=== PATIENT | female | born 1965 | race Caucasian/White ===

== ENCOUNTER → 2023-09-29 11:27 | Outpatient (REF) | payer OTHER, SELFPAY | LOC: WDC 11:27 | PROVIDERS: ATTENDING PHYSICIAN Physician Assistant | DX: Z12.31 Encounter for screening mammogram for malignant neoplasm of breast (principal) | CPT/HCPCS: 77063; 77067 ==

== ENCOUNTER → 2024-01-24 13:04 | Outpatient (REF) | payer OTHER, SELFPAY | LOC: RAD 13:04 | PROVIDERS: ATTENDING PHYSICIAN Urology; FAMILY PHYSICIAN Family Medicine | DX: D49.512 Neoplasm of unspecified behavior of left kidney (principal); N28.89 Other specified disorders of kidney and ureter | CPT/HCPCS: 74178; Q9967 ==

== ENCOUNTER 2024-05-02 19:30 | Emergency (ER) | payer OTHER, SELFPAY ==
[2024-05-02] VITALS (12 sets, daily range): BP systolic 110–149; BP diastolic 74–102; BMI 30.3
[2024-05-02 20:09] LABS: INR 1.04; PT 13.6 Sec (11.4-14.6)
[2024-05-02 20:10] LABS: % Basophils 0.3 % (0-2); % Eosinophils 1.8 % (0-6); % Immature Granulocytes 0.2 % (0-0.5); % Lymphocytes 33.1 % (20.5-51.1); % Neutrophils 57.6 % (42.2-75.2); Absolute Eosinophils 0.2 10^3/uL (0-0.7); Absolute Monocytes 0.6 10^3/uL (0.1-0.6); Absolute Neutrophils 5.2 10^3/uL (1.4-6.5); Hematocrit 39.2 % (37.0-47.0); Hemoglobin 12.7 g/dL (12.0-16.0); Mean Corp Hgb Conc. 32.4 g/dL (33.0-37.0); Mean Corpuscular Hgb 29.9 pg (27.0-31.0); Mean Corpuscular Volume 92.2 fL (81.0-99.0); Mean Platelet Volume 9.7 fL (7.4-10.4); Nucleated Red Blood Cells % 0 %; Platelet Count 249 10^3/uL (130-400); Red Blood Cell Count 4.25 10^6/uL (4.20-5.40); White Blood Cell Count 9.1 10^3/uL (4.8-10.8)
[2024-05-02 20:16] LABS: ALT (SGPT) 23 U/L (0-35); AST (SGOT) 30 U/L (14-36); Albumin 4.6 g/dl (3.5-5.0); Alkaline Phosphatase 101 U/L (38-126); Blood Urea Nitrogen 26 mg/dl (7-17); Calcium 10.2 mg/dl (8.4-10.2); Carbon Dioxide 28 mmol/L (22-30); Chloride 103 mmol/L (98-107); Glucose 97 mg/dl (70-99); Potassium 4.6 mmol/L (3.5-5.1); Sodium 143 mmol/L (135-145); Total Bilirubin 0.4 mg/dl (0.2-1.3); eGFR 53.13
[2024-05-02 20:29] LABS: Troponin I < 0.012 ng/ml
--- NOTE | 2024-05-02 21:39 | ED.GENMED ---
History of Present Illness
<CROW Tineo - Last Filed: 05/02/24 23:13>
General
Chief Complaint: Heart Rate Problem
Source: patient
Exam Limitations: none
Time Seen by Provider: 05/02/24 20:56
History of Present Illness
History of Present Illness:
This is a 58 year old female that comes in with c/o atrial fib. States that she was just sitting watching TV when she felt her heart start with atrial fib. States that she was just at the [employer] yesterday and taken of amiodarone. States that
she did take Diltiazem 120mg at home as she has this prn. States that this started at 5:45pm. Denies any fever, chills, chest pain, SOB, abd pain, nausea, vomiting, diarrhea, headache, dizziness, urinary burning.
Past History
<CROW Tineo - Last Filed: 05/02/24 23:13>
Past History
ED Past Medical History: Arrthythmia (Atrial fibrillation), CHF and Other (DVT, Mass on Kidney, cardioversion X 7); Negative HTN or Hypercholesterolemia
ED Past Surgical History: Other (Surgical left arm embolectomy, Partial thyroidectomy)
Social History
Tobacco: Former smoker (quit 2019)
Alcohol: None
Drug: None
Personal:
Living: with family
Employment: Employed
Family History
Family History: Early CAD
Review of Systems
<CROW Tineo - Last Filed: 05/02/24 23:13>
Review of Systems
All Other Systems: ROS reviewed and negative except as documented in HPI and ROS
Constitutional: Reports no symptoms; Denies fever or chills
EENT: Reports no symptoms
Respiratory: Reports no symptoms; Denies cough or trouble breathing
Cardiac: Reports other (Irregular heart rate); Denies chest pain
ABD/GI: Reports no symptoms; Denies abdominal pain, nausea, vomiting or diarrhea
: Reports no symptoms; Denies dysuria, frequency or urgency
Musculoskeletal: Reports no symptoms
Skin: Reports no symptoms
Neurological: Reports no symptoms; Denies dizzy or headache
Psychiatric: Reports no symptoms
Phy Exam
<CROW Tineo - Last Filed: 05/02/24 23:13>
General Physical Exam
General Presentation: well appearing and no apparent distress
General age: appears stated age
General Skin: warm and dry
General Habitus: normal
General Mental: alert
General Hydration: appears well hydrated
ENT Exam
ENT Exam: TM's normal, pharynx normal and neck supple
Eye Exam
Eye Exam: EOMI
Cardiovascular Exam
Cardiovascular Exam: no edema, normal peripheral pulses and irregularly irregular
Pulmonary Exam
Pulmonary Exam: lungs clear, no respiratory distress, no rales, chest non tender, no crackles, no rhonchi, no wheezing and no cough
Gastrointestinal Exam
Gastrointestinal Exam: normal bowel sounds, non tender, soft, no organomegaly, no pulsatile mass and non distended
Musculoskeletal Exam
Musculoskeletal Exam: full ROM and no edema
Skin Exam
Skin Exam: normal color, warm/dry, no rash and no petechia
Course
<CROW Tineo - Last Filed: 05/02/24 23:13>
Orders/Labs/Results
Orders:
Orders
05/02/24 19:31
EKG [Electrocardiogram (*1)] Urgent
Reason for Study: Atrial Fibrillation
05/02/24 19:32
EKG- Treatment ONCE
05/02/24 19:46
Complete Blood Count/With Diff Urgent
Comprehensive Metabolic Panel Urgent
Prothrombin Time Urgent
Troponin I Urgent
05/02/24 21:19
Diltiazem 125 mg/125 ml Nss [Cardizem] 125 mg in 125 ml IV NOW
Initial dose in mg/hr, then titrate:: 5
Titrate to keep:: Heart rate 80-100 bpm
Titrate by mg/hr:: 5 mg/hr
Frequency of titrations (minutes):: 15
Maximum dose in mg/hr:: 15
Diltiazem HCl [Cardizem] 10 mg IV NOW STA
05/02/24 21:20
0.9% Sodium Chloride 1000 ml [Nss] 1,000 ml IV BOLUS
05/02/24 21:40
Propofol [Diprivan] 20 ml .ROUTE .STK-MED
05/02/24 21:41
Apixaban [Eliquis] 5 mg PO NOW STA
05/02/24 21:56
ECG [Electrocardiogram (*1)] Urgent
Reason for Study: Atrial Fibrillation
EKG- Treatment ONCE
Abnormal Lab Results
05/02/24
19:46
MCHC 32.4 L g/dL
(33.0-37.0)
BUN 26 H mg/dl
(7-17)
Creatinine 1.2 H mg/dL
(0.6-1.0)
05/02/24 19:46
05/02/24 19:46
Dehydration. PT 13.6 with INR 1.04, Troponin <0.012
Vital Signs
Initial and Last Documented VS:
Initial Vital Signs
Temp Pulse Resp BP Pulse Ox
98.2 F 79 20 139/99 98
05/02/24 19:32 05/02/24 19:32 05/02/24 19:32 05/02/24 19:32 05/02/24 19:32
Last Documented Vital Signs
Temp Pulse Resp BP Pulse Ox
98.5 F 56 10 110/74 96
05/02/24 22:30 05/02/24 22:30 05/02/24 22:30 05/02/24 22:30 05/02/24 22:30
<Neeraj Cruz MD - Last Filed: 05/02/24 22:11>
Orders/Labs/Results
Orders:
Orders
05/02/24 19:31
EKG [Electrocardiogram (*1)] Urgent
Reason for Study: Atrial Fibrillation
05/02/24 19:32
EKG- Treatment ONCE
05/02/24 19:46
Complete Blood Count/With Diff Urgent
Comprehensive Metabolic Panel Urgent
Prothrombin Time Urgent
Troponin I Urgent
05/02/24 21:19
Diltiazem 125 mg/125 ml Nss [Cardizem] 125 mg in 125 ml IV NOW
Initial dose in mg/hr, then titrate:: 5
Titrate to keep:: Heart rate 80-100 bpm
Titrate by mg/hr:: 5 mg/hr
Frequency of titrations (minutes):: 15
Maximum dose in mg/hr:: 15
Diltiazem HCl [Cardizem] 10 mg IV NOW STA
05/02/24 21:20
0.9% Sodium Chloride 1000 ml [Nss] 1,000 ml IV BOLUS
05/02/24 21:40
Propofol [Diprivan] 20 ml .ROUTE .STK-MED
05/02/24 21:41
Apixaban [Eliquis] 5 mg PO NOW STA
05/02/24 21:56
ECG [Electrocardiogram (*1)] Urgent
Reason for Study: Atrial Fibrillation
EKG- Treatment ONCE
Abnormal Lab Results
05/02/24
19:46
MCHC 32.4 L g/dL
(33.0-37.0)
BUN 26 H mg/dl
(7-17)
Creatinine 1.2 H mg/dL
(0.6-1.0)
05/02/24 19:46
10/23/24 19:46
Vital Signs
Initial and Last Documented VS:
Initial Vital Signs
Temp Pulse Resp BP Pulse Ox
98.2 F 79 20 139/99 98
05/02/24 19:32 05/02/24 19:32 05/02/24 19:32 05/02/24 19:32 05/02/24 19:32
Last Documented Vital Signs
Temp Pulse Resp BP Pulse Ox
98.5 F 56 10 110/74 96
05/02/24 22:30 05/02/24 22:30 05/02/24 22:30 05/02/24 22:30 05/02/24 22:30
Procedures
<CROW Tineo - Last Filed: 05/02/24 23:13>
Moderate Sedation
ASA Risk Score: Class I
Chart and allergies reviewed: No
Consent for anesthesia obtained: Yes
Time out completed (validating right patient & procedure): Yes
Moderate Sedation Start Time(when first medication is given): 21:49
History of difficult intubation: No
Airway free of obstruction: Yes
Patient has a gag reflex: Yes
Patient is able to open mouth: Yes
Patient has no dentures: No
Patient has no loose teeth: No
Medication administered by Provider during Moderate Sedation: IV Propofol (mg)
Total dose administered: 70
Time drug administered: 21:49
Moderate Sedation Procedure End Time: 21:59
<CROW Tineo - Last Filed: 05/02/24 23:13>
MDM/Problems Addressed
Differential Diagnosis Includes:
Atrial fib
MDM/Problems Addressed:
This is a 58 year old female that comes in with c/o atrial fib. States that she saw the plate grainer apprentice yesterday and was take on the Amiodarone. States that she was watching TV tonight and she just went into atrial fib.
Will check labs. Message sent to DR. Prince. Agreed with cardioversion and would like patient place back on Amiodarone 200mg and patient is to call the office tomorrow for a follow up appointment.
Repeat ECG: Rate 68, NSR, Normal axis, Normal QRS, Negative for ischemia. Patient tolerate procedure will. Will discharge home. patient is to call the [facility] office and set up an appointment for further evaluaiton. Patient to return with
chest pain, atrial fib or any other concern.
Chronic conditions affecting care: Other (History of atrial fib)
Acute Exacerbation and/or Progression of Chronic Illness: Other (History of atrial fib)
<CROW Tineo - Last Filed: 05/02/24 23:13>
*Pulse Oximetry
Patient hypoxic: no
*EKG
Interpreted by ED Provider?: Yes
Heart Rate: 126
Rate: tachycardiac
Rhythm: a-fib
[place]: normal axis
QRS Pattern: normal QRS
Ischemia: ST elevation (I, II, aVF, V2, V3, V4, V5, V6, )
*[facility] Interpretation
Rate: tachycardiac
Interpretation: abnormal
Heart Rate: 129
Rhythm: a-fib
*Critical Care Note
Total Time (30-74mins, 75-104mins- exclusive of procedures): Not Applicable
ED Attending Note
<CROW Tineo - Last Filed: 05/02/24 23:13>
-
Portions of this chart may have been created with voice recognition software.� Occasional wrong word or��sound alike� substitutions may have occurred due to the inherent limitations of voice recognition software.
<Neeraj Cruz MD - Last Filed: 05/02/24 22:11>
ED Attending Note
Patient seen and examined by attending physician: Yes
ED Attending Note:
Patient with history of paroxysmal atrial fibrillation, on Eliquis, who was taken off amiodarone by her primary plate grainer apprentice yesterday during office visit, presents to ED secondary to recurrent chest palpitations while she was at home this evening.
Denies dizziness or shortness of breath. Denies nausea or vomiting. Denies chest pain. Patient has had number of similar symptoms in the past, requiring cardioversion, including 1 year ago when she was in ED. Denies recent illness.
After discussion with on-call plate grainer apprentice, , decision made to perform cardioversion in ED. Patient will be given evening dose of Eliquis afterwards.
Procedure consent on the chart.
Patient successfully cardioverted after administration of 70 mg of propofol. Repeat EKG confirms normal sinus rhythm. Patient remains hemodynamically stable afterwards
Pt advised to f/u with her primary plate grainer apprentice as outpatient.
Discharge Plan
Departure
Patient Disposition: Home (Routine Discharge)
Date of Disposition: 05/02/24
Time of Disposition: 23:06
Patient with high blood pressure during this ER visit?: No
Condition: Good
Covid-19: Not Applicable
Discharge Problem:
Atrial fibrillation
Instructions: Atrial Fibrillation (DC), Cardioversion (DC), Moderate Sedation in Adults (DC)
Prescriptions:
No Action
rosuvastatin 5 MG tablet
5 mg PO QPM Qty: 30 11RF
furosemide [Lasix] 20 MG tablet
20 mg PO DAILY
Eliquis 5 MG tablet
5 mg PO BID
amiodarone [Pacerone] 200 mg tablet
200 mg PO .SEE BELOW
Patient Comments:
05/02/2024: Per pt, Dr Cummings discontinued yesterday.
Referrals:
Evan Avendano MD [Family Provider] -
Activity Restrictions/Additional Instructions:
As discussed, your blood work shows dehydration. Please increase your water intake to 8-8oz glasses daily. You have had a Cardioversion. Please no driving or alcohol for the next 24 hours. Please start back on your Amiodarone and call the
[facility] office tomorrow for an appointment in 4-6 weeks. IF YOU HAVE ANY ATRIAL FIB, CHEST PAIN, OR YOU HAVE ANY OTHER CONCERNS PLEASE RETURN TO THE EMERGENCY ROOM.
Interventions
Interventions:
*Risk Screen - Suicide Last Done: 05/02/24 19:32
*Nursing Disposition Last Done: 05/02/24 22:54
ED- Cardiac Assessment Last Done: 05/02/24 21:42
ED- Pulmonary Assessment Last Done: 05/02/24 21:42
Discharge Date and Time
Print Language: KAZAKH
[2024-05-02] MEDS: NSS 1000 IV (22:14)
[2024-05-02] MEDS: ELIQUIS 5 MG PO (22:15)
== END 2024-05-02 23:19 | disposition home or self-care (01) ==
LOC: EMR 19:30
PROVIDERS: Emergency Medicine; EMERGENCY PHYSICIAN Emergency Medicine; FAMILY PHYSICIAN Family Medicine
DX: I48.0 Paroxysmal atrial fibrillation (principal); Z87.891 Personal history of nicotine dependence
CPT/HCPCS: 92960; 99285; 99152; 80053; 84484; 85025; 85610; 93005

== ENCOUNTER 2024-06-24 03:21 | Emergency (ER) | payer OTHER, SELFPAY ==
[2024-06-24] VITALS (14 sets, daily range): BP systolic 94–139; BP diastolic 60–98; BMI 30.5
[2024-06-24 03:53] LABS: % Basophils 0.2 % (0-2); % Eosinophils 2.2 % (0-6); % Immature Granulocytes 0.3 % (0-0.5); % Lymphocytes 36.8 % (20.5-51.1); % Monocytes 7.4 % (1.7-9.3); % Neutrophils 53.1 % (42.2-75.2); Absolute Eosinophils 0.2 10^3/uL (0-0.7); Absolute Lymphocytes 3.3 10^3/uL (1.2-3.4); Absolute Monocytes 0.7 10^3/uL (0.1-0.6); Absolute Neutrophils 4.8 10^3/uL (1.4-6.5); Hematocrit 39.6 % (37.0-47.0); Hemoglobin 12.7 g/dL (12.0-16.0); Mean Corp Hgb Conc. 32.1 g/dL (33.0-37.0); Mean Corpuscular Volume 93.6 fL (81.0-99.0); Mean Platelet Volume 9.1 fL (7.4-10.4); Nucleated Red Blood Cells % 0 %; Platelet Count 220 10^3/uL (130-400); Red Blood Cell Count 4.23 10^6/uL (4.20-5.40); Red Cell Dist. Width 12.7 % (11.5-14.5); White Blood Cell Count 9.1 10^3/uL (4.8-10.8)
[2024-06-24 04:10] LABS: ALT (SGPT) 17 U/L (0-35); AST (SGOT) 22 U/L (14-36); Albumin 4.5 g/dl (3.5-5.0); Alkaline Phosphatase 92 U/L (38-126); Blood Urea Nitrogen 25 mg/dl (7-17); Calcium 9.4 mg/dl (8.4-10.2); Carbon Dioxide 28 mmol/L (22-30); Chloride 106 mmol/L (98-107); Estimated Creatinine Clearance 59 ml/min; Glucose 123 mg/dl (70-99); Potassium 4.5 mmol/L (3.5-5.1); Sodium 142 mmol/L (135-145); Total Bilirubin 0.3 mg/dl (0.2-1.3); Total Protein 6.9 g/dl (6.3-8.2); eGFR 58.97
[2024-06-24 04:22] LABS: Troponin I < 0.012 ng/ml
[2024-06-24] MEDS: CARDIZEM 20 MG IV (04:29)
--- NOTE | 2024-06-24 04:47 | ED.GENMED ---
History of Present Illness
<TULIO Clemons - Last Filed: 06/26/24 22:02>
General
Chief Complaint: Heart Rate Problem
Source: patient and family
Exam Limitations: none
Time Seen by Provider: 06/24/24 04:25
Nursing documentation reviewed up to this point in time: agreed with
History of Present Illness
History of Present Illness:
Pt is a 58 yo F with PMH of AFib, CHF and DVT who presents to the ED stating 'I am in AFib.' She states it began around 02:30AM this morning and could feel palpitations. Pt states she has been cardioverted 8 times before for this same reason, with
most recent procedure 4 weeks ago. Pt states she is on amiodarone and Eliquis and has taken her most recent dose. Pt denies GUZMAN, dizziness, chest pain, SOB, dyspnea, n/v, abdominal pain, numbness/tingling in extremities x 4.
Past History
<TULIO Clemons - Last Filed: 06/26/24 22:02>
Past History
ED Past Medical History: Arrthythmia (Atrial fibrillation), CHF and Other (DVT, Mass on Kidney, cardioversion X 7); Negative HTN or Hypercholesterolemia
ED Past Surgical History: Other (Surgical left arm embolectomy, Partial thyroidectomy)
Social History
Tobacco: Former smoker (quit 2019)
Alcohol: None
Drug: None
Personal:
Living: with family
Employment: Employed
Family History
Family History: Early CAD
Review of Systems
<TULIO Clemons - Last Filed: 06/26/24 22:02>
Review of Systems
Constitutional: Denies fever, fatigue or chills
Respiratory: Denies cough or trouble breathing
Cardiac: Reports palpitations; Denies chest pain or syncope
ABD/GI: Denies abdominal pain, nausea or vomiting
Neurological: Denies dizzy, headache, weakness or numbness
Phy Exam
<Kymberly Jacobs [facility] - Last Filed: 06/26/24 22:02>
General Physical Exam
General Presentation: well appearing and no apparent distress
General age: appears stated age
General Skin: warm and dry
General Habitus: normal
General Mental: alert
General Hydration: appears well hydrated
Cardiovascular Exam
Cardiovascular Exam: irregularly irregular and tachycardia
Pulmonary Exam
Pulmonary Exam: lungs clear and no respiratory distress
Gastrointestinal Exam
Gastrointestinal Exam: non tender, soft and non distended
Neurological Exam
Neurological Exam: alert, oriented x3, no motor deficits, no sensory deficits and speech normal
Course
<Kymberly Jacobs [facility] - Last Filed: 06/26/24 22:02>
Orders/Labs/Results
Orders:
Orders
06/24/24 03:22
ECG [Electrocardiogram (*1)] Urgent
Reason for Study: Atrial Fibrillation
EKG- Treatment ONCE
06/24/24 03:45
Complete Blood Count/With Diff Urgent
Comprehensive Metabolic Panel Urgent
Troponin I Urgent
06/24/24 04:25
Diltiazem HCl [Cardizem] 20 mg IV NOW STA
06/24/24 05:11
Propofol [Diprivan] 20 ml .ROUTE .STK-MED
06/24/24 05:27
Electrocardiogram (*1) Urgent
Reason for Study: Atrial Fibrillation
Other Reason for Exam: post cardioversion.
EKG- Treatment ONCE
Abnormal Lab Results
06/24/24
03:45
MCHC 32.1 L g/dL
(33.0-37.0)
Absolute Monos (auto) 0.7 H 10^3/uL
(0.1-0.6)
BUN 25 H mg/dl
(7-17)
Creatinine 1.1 H mg/dL
(0.6-1.0)
Glucose 123 H mg/dl
(70-99)
06/24/24 03:45
06/24/24 03:45
Vital Signs
Initial and Last Documented VS:
Initial Vital Signs
Temp
97.9 F
06/24/24 03:35
Last Documented Vital Signs
Temp Pulse Resp BP Pulse Ox
97.8 F 46 18 103/62 98
06/24/24 06:30 06/24/24 06:27 06/24/24 06:27 06/24/24 06:27 06/24/24 06:27
<Kun Ramirez, DO - Last Filed: 06/24/24 06:29>
Orders/Labs/Results
Orders:
Orders
06/24/24 03:22
ECG [Electrocardiogram (*1)] Urgent
Reason for Study: Atrial Fibrillation
EKG- Treatment ONCE
06/24/24 03:45
Complete Blood Count/With Diff Urgent
Comprehensive Metabolic Panel Urgent
Troponin I Urgent
06/24/24 04:25
Diltiazem HCl [Cardizem] 20 mg IV NOW STA
06/24/24 05:11
Propofol [Diprivan] 20 ml .ROUTE .STK-MED
06/24/24 05:27
Electrocardiogram (*1) Urgent
Reason for Study: Atrial Fibrillation
Other Reason for Exam: post cardioversion.
EKG- Treatment ONCE
Abnormal Lab Results
06/24/24
03:45
MCHC 32.1 L g/dL
(33.0-37.0)
Absolute Monos (auto) 0.7 H 10^3/uL
(0.1-0.6)
BUN 25 H mg/dl
(7-17)
Creatinine 1.1 H mg/dL
(0.6-1.0)
Glucose 123 H mg/dl
(70-99)
06/24/24 03:45
06/24/24 03:45
Vital Signs
Initial and Last Documented VS:
Initial Vital Signs
Temp
97.9 F
06/24/24 03:35
Last Documented Vital Signs
Temp Pulse Resp BP Pulse Ox
97.8 F 46 18 103/62 98
06/24/24 06:30 06/24/24 06:27 06/24/24 06:27 06/24/24 06:27 06/24/24 06:27
Procedures
<Kun Ramirez DO - Last Filed: 06/24/24 06:29>
Moderate Sedation
ASA Risk Score: Class I
Chart and allergies reviewed: Yes
Consent for anesthesia obtained: Yes
Time out completed (validating right patient & procedure): Yes
Moderate Sedation Start Time(when first medication is given): 05:23
History of difficult intubation: No
Airway free of obstruction: Yes
Patient has a gag reflex: Yes
Patient is able to open mouth: Yes
Patient has no dentures: Yes
Patient has no loose teeth: Yes
Medication administered by Provider during Moderate Sedation: IV Propofol (mg) (75)
Total dose administered: 75
Time drug administered: 05:23
Moderate Sedation Procedure End Time: 05:33
<TULIO Clemons - Last Filed: 06/26/24 22:02>
*Critical Care Note
Total Time (30-74mins, 75-104mins- exclusive of procedures): Not Applicable
<DO Angel Mack Last Filed: 06/24/24 06:29>
Update Note
Update Note:
EKG post cardioversion showed sinus bradycardia rate of 50 with normal intervals, normal axis. No evidence of acute ischemia present. This is in lynn contrast to the atrial fibrillation seen prior
ED Attending Note
<TULIO Clemons - Last Filed: 06/26/24 22:02>
-
Portions of this chart may have been created with voice recognition software.� Occasional wrong word or��sound alike� substitutions may have occurred due to the inherent limitations of voice recognition software.
<Kun Ramirez DO - Last Filed: 06/24/24 06:29>
ED Attending Note
Patient seen and examined by attending physician: Yes
I performed the substantive portion of visit, reviewed & personally made and approve the management plan that is documented in note by myself or DL.: Yes
ED Attending Note:
Pleasant 58-year-old female that presented with A-fib with rapid ventricular response. She has had approximately 8 previous cardioversions. She states that Cardizem does not work. She is due to have an ablation in the coming weeks. She follows
with Dr. Cummings. Her last cardioversion was 4 weeks ago. She does take amiodarone and Eliquis and has not missed a dose. Patient was seen in conjunction with the PA student. I have reviewed and agree with the history and treatment plan
presented. On my independent physical exam, patient is awake, alert, and oriented x3, minimal acute distress. Heart is irregularly irregular. Lungs are clear to auscultation bilaterally without wheezes rales or rhonchi. Abdomen is soft nontender
nondistended no pedal splenomegaly skin is warm and dry. Moves all 4 extremities. Mentating appropriately.
Consent for the procedure and sedation were on the chart prior to procedure. Patient had no further questions prior and during the timeout
Patient was sedated with 75 mg of propofol.
Patient was cardioverted successfully with 1 synchronized cardioversion at 200 J.
Patient had no episodes of desaturation. Was observed in the ER for an hour postprocedure.
Discharge Plan
Departure
Patient Disposition: Home (Routine Discharge)
Date of Disposition: 06/24/24
Time of Disposition: 06:19
Patient with high blood pressure during this ER visit?: No
Discharge Problem:
Atrial fibrillation
Instructions: Atrial Fibrillation (DC), Cardioversion, MODERATE SEDATION ADULT
Prescriptions:
No Action
rosuvastatin 5 MG tablet
5 mg PO QPM Qty: 30 11RF
furosemide [Lasix] 20 MG tablet
20 mg PO DAILY
Eliquis 5 MG tablet
5 mg PO BID
Patient Comments:
per pt --- eliquis not on hold
amiodarone [Pacerone] 200 mg tablet
200 mg PO .SEE BELOW
Patient Comments:
05/02/2024: Per pt, Dr Cummings discontinued yesterday.
Referrals:
Evan Avendano MD [Family Provider] -
Riley Cummings MD [Active] -
Interventions
Interventions:
*Risk Screen - Suicide Last Done: 06/24/24 03:25
*General Assessment Last Done: 06/24/24 03:34
*Neglect/Abuse Screening Last Done: 06/24/24 03:25
ED- Fall Risk Assessment Last Done: 06/24/24 03:33
*ED COVID-19 Vaccine History Last Done: 06/24/24 03:34
*Nursing Disposition Last Done: 06/24/24 06:40
ED- Cardiac Assessment Last Done: 06/24/24 03:33
ED- Pulmonary Assessment Last Done: 06/24/24 03:33
Discharge Date and Time
Discharge Date/Time: 06/24/24 06:43
Print Language: ARMENIAN
== END 2024-06-24 06:43 | disposition home or self-care (01) ==
LOC: EMR 03:21
PROVIDERS: EMERGENCY PHYSICIAN Student in an Organized Health Care Education/Training Program; FAMILY PHYSICIAN Family Medicine
DX: I48.91 Unspecified atrial fibrillation (principal); I50.9 Heart failure, unspecified; N28.89 Other specified disorders of kidney and ureter; Z79.01 Long term (current) use of anticoagulants; Z87.891 Personal history of nicotine dependence; Z86.718 Personal history of other venous thrombosis and embolism; Z79.899 Other long term (current) drug therapy; Z88.0 Allergy status to penicillin; Z88.8 Allergy status to other drugs, medicaments and biological substances; Z91.040 Latex allergy status
CPT/HCPCS: 92960; 99285; 96374; 99152; 80053; 84484; 85025; 93005

== ENCOUNTER 2024-06-30 09:20 | Emergency (ER) | payer OTHER, SELFPAY ==
[2024-06-30] VITALS (19 sets, daily range): BP systolic 102–143; BP diastolic 58–104; BMI 30.7
--- NOTE | 2024-06-30 09:57 | ED.GENMED ---
History of Present Illness
<Matteo Mauro DO, Resident - Last Filed: 06/30/24 12:46>
General
Chief Complaint: Heart Rate Problem
Source: patient, records and spouse
Time Seen by Provider: 06/30/24 09:34
History of Present Illness
History of Present Illness:
58-year-old female with a past medical history significant for paroxysmal atrial fibrillation on Eliquis and amiodarone with pill in pocket diltiazem ER, CHF, DVT with recent ER visit 6 days prior for A-fib with RVR. During this recent ER visit
rate control was attempted with medication, however she required cardioversion. This was her ninth cardioversion. Patient has her second ablation scheduled for 07/30/2024, she follows Dr. Cummings for cardiology who recently increased her
amiodarone to 200 twice daily. Patient states that upon waking at 730 this morning she started feeling palpitations, denies chest pain, denies shortness of breath, denies abdominal pain, denies strokelike symptoms. Patient reports attempting to
try her pill in pocket diltiazem ER 120 which did not control her symptoms and she subsequently came to the emergency department. EKG in ED significant for atrial fibrillation with RVR. Patient reports not eating anything today and taking no
medications besides her diltiazem ER. She is present with her .
Past History
<Matteo Mauro DO, Resident - Last Filed: 06/30/24 12:46>
Past History
ED Past Medical History: Arrthythmia (Atrial fibrillation), CHF and Other (DVT, Mass on Kidney, cardioversion X 9, cardiac ablation); Negative HTN or Hypercholesterolemia
ED Past Surgical History: Other (Surgical left arm embolectomy, Partial thyroidectomy)
Social History
Tobacco: Former smoker (quit 2018)
Alcohol: None
Drug: None
Personal:
Living: with family
Employment: Employed
Family History
Family History: Early CAD
Review of Systems
<Matteo Mauro DO, Resident - Last Filed: 06/30/24 12:46>
Review of Systems
Constitutional: Reports no symptoms
EENT: Reports no symptoms
Respiratory: Reports no symptoms
Cardiac: Reports palpitations
ABD/GI: Reports no symptoms
Musculoskeletal: Reports no symptoms
Neurological: Reports no symptoms
Phy Exam
<Matteo Mauro DO, Resident - Last Filed: 06/30/24 12:46>
General Physical Exam
General Presentation: well appearing and no apparent distress
General Skin: warm and dry
Cardiovascular Exam
Cardiovascular Exam: no edema, no murmur and irregularly irregular
Pulmonary Exam
Pulmonary Exam: lungs clear and no respiratory distress
Course
<Matteo Mauro DO, Resident - Last Filed: 06/30/24 12:46>
Orders/Labs/Results
Orders:
Orders
06/30/24 09:21
EKG [Electrocardiogram (*1)] Urgent
Reason for Study: Atrial Fibrillation
EKG- Treatment ONCE
06/30/24 10:11
Amiodarone [Cordarone] 150 mg Dextrose 5%/Water 100 ml [D5w] 100 ml IV NOW
06/30/24 10:36
0.9% Sodium Chloride 500 ml [Nss] 500 ml IV BOLUS
06/30/24 11:06
Propofol [Diprivan] 100 mg IV NOW STA
06/30/24 11:07
ASA Classification Routine
06/30/24 11:26
Electrocardiogram (*1) Urgent
Reason for Study: Atrial Fibrillation
Other Reason for Exam: post cardioversion
EKG- Treatment ONCE
Vital Signs
Initial and Last Documented VS:
Initial Vital Signs
Temp Pulse Resp BP Pulse Ox
98.2 F 132 18 134/98 99
06/30/24 09:26 06/30/24 09:26 06/30/24 09:26 06/30/24 09:26 06/30/24 09:26
Last Documented Vital Signs
Temp Pulse Resp BP Pulse Ox
98.5 F 56 16 117/67 98
06/30/24 12:15 06/30/24 12:34 06/30/24 12:34 06/30/24 12:15 06/30/24 12:15
<Norberto Donato, DO - Last Filed: 06/30/24 14:34>
Orders/Labs/Results
Orders:
Orders
06/30/24 09:21
EKG [Electrocardiogram (*1)] Urgent
Reason for Study: Atrial Fibrillation
EKG- Treatment ONCE
06/30/24 10:11
Amiodarone [Cordarone] 150 mg Dextrose 5%/Water 100 ml [D5w] 100 ml IV NOW
06/30/24 10:36
0.9% Sodium Chloride 500 ml [Nss] 500 ml IV BOLUS
06/30/24 11:06
Propofol [Diprivan] 100 mg IV NOW STA
06/30/24 11:07
ASA Classification Routine
06/30/24 11:26
Electrocardiogram (*1) Urgent
Reason for Study: Atrial Fibrillation
Other Reason for Exam: post cardioversion
EKG- Treatment ONCE
Vital Signs
Initial and Last Documented VS:
Initial Vital Signs
Temp Pulse Resp BP Pulse Ox
98.2 F 132 18 134/98 99
06/30/24 09:26 06/30/24 09:26 06/30/24 09:26 06/30/24 09:26 06/30/24 09:26
Last Documented Vital Signs
Temp Pulse Resp BP Pulse Ox
98.5 F 56 16 117/67 98
06/30/24 12:15 06/30/24 12:34 06/30/24 12:34 06/30/24 12:15 12/21/24 12:15
Procedures
<Norberto Donato DO - Last Filed: 06/30/24 14:34>
Moderate Sedation
ASA Risk Score: Class II
Chart and allergies reviewed: Yes
Consent for anesthesia obtained: Yes
Time out completed (validating right patient & procedure): Yes
History of difficult intubation: No
Airway free of obstruction: Yes
Patient has a gag reflex: Yes
Patient is able to open mouth: Yes
Patient has no dentures: Yes
Patient has no loose teeth: Yes
Medication administered by Provider during Moderate Sedation: IV Propofol (mg)
Total dose administered: 70
Time drug administered: 11:35
Cardioversion
Indication:: Afib
Performed by:: beth
Synchronized?: Yes
Energy Used: 200 joules
Number of attempts: 1
Successful?: Yes
ASA Risk Score: Class II
Any reaction or bad outcome to prior sedation/anesthesia?: No history of a reaction
Sedation level to be attained: moderate
Chart and allergies reviewed: Yes
Patient reassessed prior to sedation: Yes
Time out completed at (validating right patient & procedure): 11:35
History of difficult intubation: No
Airway free of obstruction: Yes
Patient has a gag reflex: Yes
Patient is able to open mouth: Yes
Patient has no dentures: Yes
Patient has no loose teeth: Yes
Medication administered by Provider during Moderate Sedation: IV Propofol (mg)
Total dose administered: 70
Time drug administered: 11:36
Start Time: 11:35
Stop Time: 11:45
<Matteo Mauro DO, Resident - Last Filed: 06/30/24 12:46>
MDM/Problems Addressed
Differential Diagnosis Includes:
Atrial fibrillation with RVR, atrial flutter, SVT
MDM/Problems Addressed:
#Atrial fibrillation with RVR
History significant for atrial fibrillation with RVR on Eliquis and p.o. amiodarone with 9 previous cardioversions and 1 previous ablation
Recent ED visit 6 days prior A-fib with RVR, failed medical management and was controlled with electrical cardioversion
Patient reports symptoms started at 7:30am with no inciting event this morning, denies chest pain, denies shortness of breath, denies abdominal pain, denies stroke-like symptoms
She follows Dr. Cummings for cardiology who recently increased her amiodarone to 200 twice daily by mouth.
Patient reports using pill in pocket method for atrial fibrillation control, she states she took her diltiazem 120 Mg ER this morning which did not control her symptoms. She did not take any other scheduled medications this morning and she did not
eat
EKG in emergency department demonstrated A-fib with RVR
Will reach out to Dr. Cummings and ask for recommendations regarding rate versus rhythm control and with which modality
Cardiology recommended amiodarone 150 mg IV
Medical rhythm control with amiodarone was unsuccessful
Discussion had with patient regarding pros and cons of cardioversion, consent was obtained and scanned into chart
Performed synchronized electrocardioversion at 200 J under conscious sedation
Patient successfully cardioverted after 1 200 J shock under conscious sedation
Repeat EKG demonstrated sinus bradycardia at approximately 52 bpm
<Norberto Donato DO - Last Filed: 06/30/24 14:34>
*Critical Care Note
Total Time (30-74mins, 75-104mins- exclusive of procedures): 12
<Norberto Donato DO - Last Filed: 06/30/24 14:34>
Update Note
Update Note:
11:10 AM update has been converted after amiodarone, consented for DC cardioversion
ED Attending Note
<Matteo Mauro DO, Resident - Last Filed: 06/30/24 12:46>
-
Portions of this chart may have been created with voice recognition software.� Occasional wrong word or��sound alike� substitutions may have occurred due to the inherent limitations of voice recognition software.
<Norberto Donato, DO - Last Filed: 06/30/24 14:34>
ED Attending Note
Patient seen and examined by attending physician: Yes
I performed a history and physical exam of patient and discussed management with resident, I reviewed resident's note and agree with documented findings and plan of care.: Yes
ED Attending Note:
Seen with resident examined independently 58-year-old female PAF on Eliquis amiodarone recent increased her dose 9 or 10 prior cardioversions, scheduled for an ablation next month by Dr. Chun went into A-fib this morning took an extra dose of
Cardizem no amiodarone yet she is n.p.o., has a ride home is amenable to cardioversion I did briefly discuss her case with her outpatient database programmer, will try to get her back into rhythm will try amiodarone first, if unsuccessful proceed with DC
cardioversion
Discharge Plan
Departure
Patient Disposition: Home (Routine Discharge)
Date of Disposition: 06/30/24
Time of Disposition: 12:22
Patient with high blood pressure during this ER visit?: No
Condition: Good
Discharge Problem:
Atrial fibrillation status post cardioversion
Instructions: Atrial Fibrillation (DC), MODERATE SEDATION ADULT
Prescriptions:
No Action
rosuvastatin 5 MG tablet
5 mg PO QPM Qty: 30 11RF
furosemide [Lasix] 20 MG tablet
20 mg PO DAILY
Eliquis 5 MG tablet
5 mg PO BID
Patient Comments:
per pt --- eliquis not on hold
amiodarone [Pacerone] 200 mg tablet
200 mg PO DAILY
Patient Comments:
05/02/2024: Per pt, Dr Cummings discontinued yesterday.
Referrals:
Evan Avendano MD [Family Provider] -
Activity Restrictions/Additional Instructions:
No more amiodarone today, restart at your normal dose tomorrow
Interventions
Interventions:
*Risk Screen - Suicide Last Done: 06/30/24 09:26
*General Assessment Last Done: 06/30/24 09:26
*Neglect/Abuse Screening Last Done: 06/30/24 09:26
ED- Fall Risk Assessment Last Done: 06/30/24 09:56
*ED COVID-19 Vaccine History Last Done: 06/30/24 09:26
*Nursing Disposition Last Done: 06/30/24 12:34
ED- Cardiac Assessment Last Done: 06/30/24 11:49
ED- Pulmonary Assessment Last Done: 06/30/24 09:44
Discharge Date and Time
Discharge Date/Time: 06/30/24 12:36
Print Language: UKRAINIAN
[2024-06-30] MEDS: CORDARONE 103 MG IV (10:17)
[2024-06-30] MEDS: NSS 500 IV (10:36)
[2024-06-30] MEDS: DIPRIVAN 70 MG IV (12:03)
== END 2024-06-30 12:36 | disposition home or self-care (01) ==
LOC: EMR 09:20
PROVIDERS: EMERGENCY PHYSICIAN Emergency Medicine; FAMILY PHYSICIAN Family Medicine
DX: I48.0 Paroxysmal atrial fibrillation (principal); I50.9 Heart failure, unspecified; N28.89 Other specified disorders of kidney and ureter; Z86.718 Personal history of other venous thrombosis and embolism; Z87.891 Personal history of nicotine dependence; Z88.0 Allergy status to penicillin; Z88.8 Allergy status to other drugs, medicaments and biological substances; Z91.040 Latex allergy status
CPT/HCPCS: 92960; 99285; 96374; 96361; 99152; 93005

== ENCOUNTER 2024-07-27 18:55 | Emergency (ER) | payer OTHER, SELFPAY ==
[2024-07-27] VITALS (15 sets, daily range): BP systolic 118–152; BP diastolic 72–111; BMI 28.3
--- NOTE | 2024-07-27 19:51 | ED.GENMED ---
History of Present Illness
General
Chief Complaint: Heart Rate Problem
Source: patient and records
Time Seen by Provider: 07/27/24 19:30
History of Present Illness
History of Present Illness:
This patient is a 59-year-old female with a longstanding history of atrial fibrillation who presents to the emergency department with complaints of palpitations just like she has been in A-fib. The symptoms started about an hour ago while she was
watching TV, described as 'heart racing'. She denies any other associated symptoms such as lightheadedness, dizziness, chest pain or pressure, back pain, pain, headache, dyspnea, nausea, vomiting, leg swelling, or other complaints. Patient is
compliant with her DOAC and takes 200 mg of amnio every morning. She is due for PVI on Tuesday.
Past History
Past History
ED Past Medical History: Arrthythmia (Atrial fibrillation), CHF and Other (DVT, Mass on Kidney, cardioversion X 9, cardiac ablation); Negative HTN or Hypercholesterolemia
ED Past Surgical History: Other (Surgical left arm embolectomy, Partial thyroidectomy)
Social History
Tobacco: Former smoker (quit 2018)
Alcohol: None
Drug: None
Personal:
Living: with family
Employment: Employed
Family History
Family History: Early CAD
Phy Exam
Physical Exam
Physical Exam:
GENERAL: Alert , in no apparent distress
EYE: pupils equal and reactive
NECK: Supple, no significant adenopathy.
ENT: o/p clr, mmm.
CARDIAC: Irregularly irregular, tachycardic
LUNGS: Clear breath sounds bilaterally, no acute respiratory distress,
ABDOMEN: Soft, without focal tenderness, no r/g, no cvat
NEUROLOGICAL: Alert and oriented, no focal neuro deficits
SKIN: Warm and dry, skin intact.
MUSCULOSKELETAL: No edema, well perfused.
PSYCH: Normal and appropriate interaction.
Course
Orders/Labs/Results
Orders:
Orders
07/27/24 18:55
Electrocardiogram (*1) Urgent
Reason for Study: Atrial Fibrillation
EKG- Treatment ONCE
07/27/24 20:10
Propofol [Diprivan] 20 ml .ROUTE .STK-MED
07/27/24 20:22
EKG [Electrocardiogram (*1)] Urgent
Reason for Study: Other
Other Reason for Exam: s/p cardioversion
07/27/24 20:23
EKG- Treatment ONCE
Vital Signs
Initial and Last Documented VS:
Initial Vital Signs
Temp Pulse Resp BP Pulse Ox
98.0 F 130 16 118/89 99
07/27/24 19:06 07/27/24 19:06 07/27/24 19:06 07/27/24 19:06 07/27/24 19:06
Last Documented Vital Signs
Temp Pulse Resp BP Pulse Ox
97.9 F 57 14 131/75 99
07/27/24 21:00 07/27/24 21:00 07/27/24 21:00 07/27/24 21:00 07/27/24 21:00
Procedures
Cardioversion
Indication:: Afib
Performed by:: Joselyn Valle
Synchronized?: Yes
Energy Used: 200 joules
Number of attempts: 1
Successful?: Yes
Complications: None
ASA Risk Score: Class I
Any reaction or bad outcome to prior sedation/anesthesia?: No history of a reaction
Sedation level to be attained: moderate
Chart and allergies reviewed: Yes
Patient reassessed prior to sedation: Yes
Time out completed at (validating right patient & procedure): 20:18
History of difficult intubation: No
Airway free of obstruction: Yes
Patient has a gag reflex: Yes
Patient is able to open mouth: Yes
Patient has no dentures: Yes
Patient has no loose teeth: Yes
Medication administered by Provider during Moderate Sedation: IV Propofol (mg)
Total dose administered: 40
Time drug administered: 20:20
Start Time: 20:20
Stop Time: 20:30
*Critical Care Note
Total Time (30-74mins, 75-104mins- exclusive of procedures): Not Applicable
Update Note
Update Note:
Patient presents to the Emergency Department with _palpitations
Number and Complexity of Problems Addressed at the Encounter
� Chronic conditions affecting care:
� Acute Exacerbation and/or Progression of Chronic Illness:
� Differential Diagnosis includes: But not limited to atrial fibrillation, a flutter, SVT, anxiety, etc. etc.
Amount and/or Complexity of Data to be Reviewed and Analyzed
� I performed an independent evaluation of and my interpretation is:
EKG: Read by me, tachycardic, regular irregular, A-fib, no acute ischemia
CT:
Xrays:
Laboratory Studies:
Other:
� Review of other/old records reveals: Labs drawn just 2 days ago demonstrate mild renal insufficiency with a creatinine of 1.3 which is relatively close to her baseline.
� Clinical information was obtained by an independent historian:
� Prescriptions/Medications Considered but not given:
� Further testing considered but not performed:
Risk of Complications and/or Morbidity or Mortality of Patient Management
� Social determinants of health affecting care:
� Discussion with other providers (PCP, Hospitalists, Consultants, etc):
� Escalation of care including admission/observation vs risk of discharge considered: I did not draw labs here given she just had labs drawn 2 days ago, history and physical very consistent with prior episodes, etc. Discussion
with cardiology, Dr. Brady, aware of patient's history of multiple cardioversions in the past, medications, planned pulmonary vein isolation for Tuesday, etc. etc. He recommends cardioversion and discharged home, does not see any other potential
medical options. I did give the patient a choice given that she is not having any ischemia like symptoms and her only physical complaint is palpitations that she could await her procedure on Tuesday versus cardioversion and she elects cardioversion.
I made it very clear to her that this procedure does have risks and was specific regarding the risks not only of the cardioversion itself but also procedural sedation. Consent signed. Patient confirms she has not missed any doses of her Eliquis.
8:32 PM cardioversion performed, successful x 1. Repeat ECG normal sinus rhythm no acute ischemia
9:16 PM patient asymptomatic, normal sinus rhythm, no complaints. Patient encouraged to continue her appointment Tuesday for her procedure.
ED Attending Note
-
Portions of this chart may have been created with voice recognition software.� Occasional wrong word or��sound alike� substitutions may have occurred due to the inherent limitations of voice recognition software.
Discharge Plan
Departure
Patient Disposition: Home (Routine Discharge)
Date of Disposition: 07/27/24
Time of Disposition: 21:16
Patient with high blood pressure during this ER visit?: Yes
Condition: Good
Discharge Problem:
Atrial fibrillation
Instructions: Atrial Fibrillation (DC), MODERATE SEDATION ADULT, BLOOD PRESSURE
Prescriptions:
No Action
rosuvastatin 5 MG tablet
5 mg PO QPM Qty: 30 11RF
furosemide [Lasix] 20 MG tablet
20 mg PO DAILY
Eliquis 5 MG tablet
5 mg PO BID
amiodarone [Pacerone] 200 mg tablet
200 mg PO DAILY
Activity Restrictions/Additional Instructions:
PLEASE SEE YOUR BOOT TRIMMER ON TUESDAY SCHEDULED. IF YOU DEVELOP CHEST PAIN, SHORTNESS OF BREATH, BLEEDING, NUMBNESS, CHANGE IN SPEECH CHANGE IN BALANCE, DIZZINESS, OR OTHER WORRISOME SIGNS, PLEASE RETURN TO THE ER IMMEDIATELY
Interventions
Interventions:
*Risk Screen - Suicide Last Done: 07/27/24 20:07
*General Assessment Last Done: 07/27/24 20:07
*Neglect/Abuse Screening Last Done: 07/27/24 20:07
ED- Fall Risk Assessment Last Done: 07/27/24 20:09
*ED COVID-19 Vaccine History Last Done: 07/27/24 20:07
ED- Cardiac Assessment Last Done: 07/27/24 21:04
ED- Pulmonary Assessment Last Done: 07/27/24 20:10
Discharge Date and Time
Print Language: [place]
--- NOTE | 2024-07-27 21:17 | ED.GENMED ---
History of Present Illness
General
Chief Complaint: Heart Rate Problem
Time Seen by Provider: 07/27/24 19:30
Past History
Past History
ED Past Medical History: Arrthythmia (Atrial fibrillation), CHF and Other (DVT, Mass on Kidney, cardioversion X 9, cardiac ablation); Negative HTN or Hypercholesterolemia
ED Past Surgical History: Other (Surgical left arm embolectomy, Partial thyroidectomy)
Social History
Tobacco: Former smoker (quit 2019)
Alcohol: None
Drug: None
Personal:
Living: with family
Employment: Employed
Family History
Family History: Early CAD
Course
Orders/Labs/Results
Orders:
Orders
07/27/24 18:55
Electrocardiogram (*1) Urgent
Reason for Study: Atrial Fibrillation
EKG- Treatment ONCE
07/27/24 20:10
Propofol [Diprivan] 20 ml .ROUTE .STK-MED
07/27/24 20:22
EKG [Electrocardiogram (*1)] Urgent
Reason for Study: Other
Other Reason for Exam: s/p cardioversion
07/27/24 20:23
EKG- Treatment ONCE
Vital Signs
Initial and Last Documented VS:
Initial Vital Signs
Temp Pulse Resp BP Pulse Ox
98.0 F 130 16 118/89 99
07/27/24 19:06 07/27/24 19:06 07/27/24 19:06 07/27/24 19:06 07/27/24 19:06
Last Documented Vital Signs
Temp Pulse Resp BP Pulse Ox
97.9 F 57 14 131/75 99
07/27/24 21:00 07/27/24 21:00 07/27/24 21:00 07/27/24 21:00 07/27/24 21:00
Procedures
Moderate Sedation
Moderate Sedation Start Time(when first medication is given): 20:20
Moderate Sedation Procedure End Time: 20:30
ED Attending Note
-
Portions of this chart may have been created with voice recognition software.� Occasional wrong word or��sound alike� substitutions may have occurred due to the inherent limitations of voice recognition software.
Discharge Plan
Departure
Patient Disposition: Home (Routine Discharge)
Date of Disposition: 07/27/24
Time of Disposition: 21:16
Patient with high blood pressure during this ER visit?: Yes
Condition: Good
Discharge Problem:
Atrial fibrillation
Instructions: Atrial Fibrillation (DC), MODERATE SEDATION ADULT, BLOOD PRESSURE
Prescriptions:
No Action
rosuvastatin 5 MG tablet
5 mg PO QPM Qty: 30 11RF
furosemide [Lasix] 20 MG tablet
20 mg PO DAILY
Eliquis 5 MG tablet
5 mg PO BID
amiodarone [Pacerone] 200 mg tablet
200 mg PO DAILY
Activity Restrictions/Additional Instructions:
PLEASE SEE YOUR ELEMENTARY INSTRUCTIONAL COACH ON TUESDAY SCHEDULED. IF YOU DEVELOP CHEST PAIN, SHORTNESS OF BREATH, BLEEDING, NUMBNESS, CHANGE IN SPEECH CHANGE IN BALANCE, DIZZINESS, OR OTHER WORRISOME SIGNS, PLEASE RETURN TO THE ER IMMEDIATELY
Interventions
Interventions:
*Risk Screen - Suicide Last Done: 07/27/24 20:07
*General Assessment Last Done: 07/27/24 20:07
*Neglect/Abuse Screening Last Done: 07/27/24 20:07
ED- Fall Risk Assessment Last Done: 07/27/24 20:09
*ED COVID-19 Vaccine History Last Done: 07/27/24 20:07
ED- Cardiac Assessment Last Done: 07/27/24 21:04
ED- Pulmonary Assessment Last Done: 07/27/24 20:10
Discharge Date and Time
Print Language: MOSOTHO
== END 2024-07-27 21:34 | disposition home or self-care (01) ==
LOC: EMR 18:55
PROVIDERS: EMERGENCY PHYSICIAN Emergency Medicine; FAMILY PHYSICIAN Family Medicine
DX: I48.91 Unspecified atrial fibrillation (principal); I50.9 Heart failure, unspecified; Z86.718 Personal history of other venous thrombosis and embolism; Z87.891 Personal history of nicotine dependence
CPT/HCPCS: 92960; 99152; 99285; 93005

== ENCOUNTER 2024-07-30 08:06 | Day surgery (SDC) | payer OTHER, SELFPAY ==
[2024-07-25 09:29] VITALS: BMI 28.2
--- NOTE | 2024-07-25 09:41 | HPS.HSE ---
Family Physician
-
Family Physician: Evan Avendano
Chief Complaint
-
Paroxysmal atrial fibrillation.
History of Present Illness
The patient is a 58 year old female presenting for paroxysmal atrial fibrillation. She does report significant palpitations associated with her arrhythmia. Her palpitations as so distressing that she has had several ER visits for further
medical management. Her last ER visit for her arrhythmia was in late June 2024. She has previously undergone 9 cardioversions and pulmonary vein isolation in 2021 secondary to this diagnosis. She is on current pharmacological therapy with
Amiodarone. She has been compliant with Eliquis for oral anticoagulation. She notes that her current palpitations greatly interfere with her activities of daily living and overall impact her quality of life. She also hopes to come off Amiodarone one
day given its known toxicities with lifelong use. She is interested in pursuing a repeat pulmonary vein isolation for further arrhythmia management. She denies any complaints today such as chest pain, shortness of breath, nausea, vomiting, diarrhea,
lightheadedness, dizziness, cough, sore throat, or fever.
Medical History
Past Medical History
Past Medical History: Reports Other
Additional Past Medical History:
1. Paroxysmal atrial fibrillation, status post cardioversion x9 and pulmonary vein isolation 2021; pharmacological therapy with Amiodarone and oral anticoagulation with Eliquis.
2. Sinus bradycardia.
3. Hyperlipidemia.
4. NSTEMI with coronary vasospasm 2016.
5. Coronary artery disease, nonobstructive by cath 2016.
6. Heart failure, preserved ejection fraction, in setting of atrial fibrillation.
7. Mild mitral regurgitation.
8. Left upper extremity arterial thrombus, 12/2021, status post left axillary, brachial, radial and ulnar artery thrombectomy.
9. Benign pulmonary nodule.
10. Mild renal insufficiency per pre-operative labs.
11. Probable old lacunar infarct on head CT 12/2021.
12. Thyroid nodule, status post partial thyroidectomy.
13. Left renal neoplasm, status post left nephrectomy 07/2022.
14. History of tobacco abuse.
Past Surgical History: Reports Other
Additional Past Surgical History:
1. Pulmonary vein isolation.
2. Cardioversion x9.
3. Cardiac catheterization.
4. Left axillary, brachial, radial and ulnar artery thrombectomy.
5. Left nephrectomy.
6. Partial thyroidectomy.
7. [place] teeth extraction.
8. Dental extractions.
Social History
Tobacco: Former Smoker (She is a former less than 1 pack per day cigarette smoker who quit tobacco altogether 5 years ago. )
Alcohol: Occasional (wine. )
Personal:
Living: Other (She lives in a 1 story home with her . )
Family History
Family History: Not pertinent
Allergies / Home Medications
Allergy/Medication List:
Home medications:
1. Amiodarone 200 mg p.o. daily.
2. Eliquis 5 mg p.o. twice a day.
3. Furosemide 20 mg p.o. daily.
4. Rosuvastatin 5 mg p.o. every evening.
Allergies: Metoprolol. Penicillin. Latex.
She reports a sensitivity to anesthesia. This presents as nausea and vomiting.
Review of Systems
-
A 12 point ROS was completed and negative except as noted: Yes
Physical Exam
Vital Signs
Blood pressure 139/78. Heart rate 56. Respirations 18. Pulse ox 99% on room air.
Height 5 feet, 6 inches. Weight 79.3 kg. BMI 28.2.
Physical Exam
General: Well Developed, Well Nourished and No Apparent Distress
HEENT: NormoCephalic, Moist mucous membranes, Atraumatic and PERRLA
Respiratory: Clear
Cardiac: Bradycardia
GI: Soft, Non Tender and Non Distended
Musculoskeletal: No Edema and Normal Gait & Station
Skin: Warm and Dry
Neuro: AO x 3 and Nonfocal/grossly intact
Laboratory Results
-
DIAGNOSTIC STUDIES as of 07/25/2024: White blood cell count 7.4. Hemoglobin 12.1. Platelet count 225,000. PT 14.9. INR 1.12. Sodium 139. Potassium 4.3. BUN 22. Creatinine 1.3. Glucose 93. Calcium 9.3. Magnesium 2.2. AST 24. ALT 19. Albumin 4.6. Type
and screen O negative.
EKG 07/25/2024: Sinus bradycardia with premature supraventricular complexes. Nonspecific ST and T wave abnormality.
Chest CT 03/31/2022: No evidence of left atrial thrombus. The stability of the 1 cm right upper lobe pulmonary mass dating back to 07/15/2016 indicates that it is benign.
Echocardiogram 12/28/2021: Normal left ventricular chamber size. Normal left ventricular systolic function. Left ventricular ejection fraction is 55-60% by visual assessment. There are no regional wall motion abnormalities noted. Normal left
ventricular wall thickness. Mitral sclerosis without stenosis. Mild mitral regurgitation. Indexed LA volume is severely abnormal (> 48 mL/m2). Since echocardiogram December 22, 2021, there is no significant change.
Impression/Plan
-
IMPRESSION/PLAN:
1. Paroxysmal atrial fibrillation: The patient is in need of pulmonary vein isolation with Dr. Panda Chun on 07/30/2024. The benefits and risks of the procedure have been explained to the patient. The patient understands these risks and
wishes to proceed. She will not be required to undergo a preprocedural transesophageal echocardiogram as she has been compliant with her home oral anticoagulation. She is aware to continue Eliquis uninterrupted prior to her procedure. She will take
no medications the morning of her ablation.
[2024-07-25 09:57] LABS: % Basophils 0.4 % (0-2); % Eosinophils 1.5 % (0-6); % Immature Granulocytes 0.3 % (0-0.5); % Lymphocytes 26.2 % (20.5-51.1); % Monocytes 6.8 % (1.7-9.3); % Neutrophils 64.8 % (42.2-75.2); Absolute Eosinophils 0.1 10^3/uL (0-0.7); Absolute Lymphocytes 1.9 10^3/uL (1.2-3.4); Absolute Monocytes 0.5 10^3/uL (0.1-0.6); Absolute Neutrophils 4.8 10^3/uL (1.4-6.5); Hematocrit 36.9 % (37.0-47.0); Hemoglobin 12.1 g/dL (12.0-16.0); Mean Corp Hgb Conc. 32.8 g/dL (33.0-37.0); Mean Corpuscular Volume 91.3 fL (81.0-99.0); Mean Platelet Volume 9.2 fL (7.4-10.4); Nucleated Red Blood Cells % 0 %; Platelet Count 225 10^3/uL (130-400); Red Blood Cell Count 4.04 10^6/uL (4.20-5.40); Red Cell Dist. Width 12.5 % (11.5-14.5); White Blood Cell Count 7.4 10^3/uL (4.8-10.8)
[2024-07-25 10:09] LABS: INR 1.12; PT 14.9 Sec (11.4-14.6)
[2024-07-25 10:17] LABS: ALT (SGPT) 19 U/L (0-35); AST (SGOT) 24 U/L (14-36); Albumin 4.6 g/dl (3.5-5.0); Alkaline Phosphatase 107 U/L (38-126); Blood Urea Nitrogen 22 mg/dl (7-17); Calcium 9.3 mg/dl (8.4-10.2); Carbon Dioxide 30 mmol/L (22-30); Chloride 100 mmol/L (98-107); Estimated Creatinine Clearance 51 ml/min; Glucose 93 mg/dl (70-99); Magnesium 2.2 mg/dl (1.6-2.3); Potassium 4.3 mmol/L (3.5-5.1); Sodium 139 mmol/L (135-145); Total Bilirubin 0.5 mg/dl (0.2-1.3); eGFR 48.26
[2024-07-30] VITALS (10 sets, daily range): BP systolic 84–129; BP diastolic 49–83; BMI 27.8
--- NOTE | 2024-07-30 07:36 | ITS.CL.ABL ---
[employer] - Ablation
Ablation
Procedure Report:
ELECTROPHYSIOLOGIC STUDY AND POSSIBLE ABLATION
DATE: July 30, 2024
Primary Care Provider: Dr. Evan Avendano
Primary [employer] Location Manager: Dr Kurt Cummings
INDICATION:
Symptomatic Atrial Fibrillation.
Paroxysmal
HISTORY: See H and P.
PVI April 05, 2022 with cryoballoon ablation did well for a while but has since recurred with symptomatic atrial fibrillation.
Symptomatic AF, poorly controlled with attempted medical therapy
HAS-BLED: 1
Abnormal Renal Function
CHADSVASc: 4
h/o thromboembolic event to UE (considering as CVA equivalent)
Vascular Dz: prior TX (NSTEMI)
F Gender
PRESENTING RHYTHM: AF
HISTORY: See H and P.
Symptomatic AF, poorly controlled with attempted medical therapy.
ANTIARRHYTHMIC DRUG: amiodarone
ANTICOAGULATION: Eliquis
'TIME-OUT': called and confirmed.
SEDATION/ANESTHESIA: provided via the anesthesia department using general anesthesia.
PROCEDURE:
Ultrasound Guidance with real-time visualization of needle insertion and vessel patency performed by me for femoral venous Vascular Access. Images were taken and saved for the patient's permanent record. Imaging findings typical femoral venous
anatomy. Direct visualization of needle puncture into the femoral vein was observed and recorded.
A decapolar CS catheter was placed within the CS for mapping and pacing.
The intracardiac ultrasound catheter was positioned in the RA for continuous intracardiac ultrasound imaging.
Heparin bolus and infusion to target ACT at 300 -350 seconds was administered. Transseptal puncture was performed. This entailed advancing a sheath with dilator into the superior vena cava and withdrawing both (monitoring intracardiac ultrasound,
fluoroscopy and tip pressure) with the tip oriented toward the atrial septum. The fossa ovalis was engaged (indicated by sudden displacement of the sheath tip as well as tenting of the fossa seen on intracardiac ultrasound).
Transseptal puncture was performed. Left atrial catheter position was confirmed by echocardiographic imaging, pressure monitoring (LA mean pressure 8 mm Hg) and fluoroscopy. The sheath was advanced over the dilator and positioned in the left
atrium.
The [employer] multipolar mapping/ablation Sphere-9 catheter was positioned through the transseptal sheath for high density mapping.
Geometry and voltage mapping was performed using the [employer] mapping system for three-dimensional electroanatomical mapping.
Catheter positioning was guided and confirmed using both I.C.E. and fluoroscopy.
Cardioversion was performed to restore sinus rhythm. However after several seconds of sinus rhythm atrial fibrillation recurred and mapping was then performed in atrial fibrillation.
High density three-dimensional electroanatomical mapping demonstrates near isolation of the pulmonary veins. The left superior and left inferior pulmonary veins are isolated. The right superior pulmonary vein is isolated. The right inferior vein
towards its inferior quadrant shows reconnection. There is wide area circumferential ablation posteriorly. Mapping in atrial fibrillation finds marked fractionated signals along the posterior wall.
Pulsed electric field energy was utilized to isolate the posterior wall of the left atrium as an additional ablation lesion set and also used to isolate/isolate the right inferior pulmonary vein at its inferior quadrant.
Cardioversion then restored sinus rhythm. Burst atrial pacing was able to induce any regular atrial tachycardia. Entrainment from the right atrium is very long. The tachycardia is quite irregular and entrainment for circumflex identification as
well as activation mapping was not possible. Cardioversion restored sinus rhythm and additional mapping was performed in sinus rhythm. This resulted in the delivery of additional posterior wall applications to extend the posterior wall isolation
towards the anterior of both the right sided and the left sided veins. Additional ablation was performed between the left sided veins and the ridge of the left atrial appendage. Additional ablation set was performed at the right sided pulmonary
veins anteriorly to further extend the area of anterior ablation. Also additional ablation was performed at the right inferior pulmonary vein to ensure it was completely isolated. Both entrance and exit block was proven at the posterior wall as
well as each pulmonary vein. Burst atrial pacing was repeated and now no arrhythmias could be induced.
Of note, there are 4 pulmonary veins (LSPV, LIPV, RSPV, RIPV).
I.C.E. :
Pre-Ablation Post-Ablation
LVEF: 55% 55%
WMA: None None
Pericardial effusion: Trace posterior trace posterior
COMPLICATIONS:
None
SUMMARY:
- Mapping and ablation to isolate the PVs
- Additional AF ablation set after PVI.
- 3-D Electroanatomical Mapping
- Intracardiac Ultrasound
- Ultrasound guidance for vascular access
Post ablation, I discussed today's findings and results with the patient's her , Matt.
RECOMMENDATIONS:
- Observe in monitored bed.
- Maintain oral anticoagulation.
- Office visit has already been arranged with one of our advanced practice professionals for next month.
- Continue cardiovascular care with Dr Kurt Cummings in 4-6 months
Copy to:
Dr. Evan Avendano
Dr Kurt Cummings
[2024-07-30 11:40] LABS: ACT-LR - POC 316 Seconds (116-155)
[2024-07-30 11:58] LABS: ACT-LR - POC 318 Seconds (116-155)
[2024-07-30 12:21] LABS: ACT-LR - POC 351 Seconds (116-155)
--- NOTE | 2024-07-30 15:24 | W.PN.UPDATE ---
Update Note
Progress Note Update
Pt seen post PFA. Right groin site with vascade closure, no ht/bleeding, oob urinating without difficulty. Post EKG SB 50s, no acute changes. Resume eliquis tonight at usual time. Followup at [facility] as scheduled. Home today if groin site/tele remain
stable.
[2024-07-30 15:54] LABS: ACT-LR - POC > 397 Seconds (116-155)
== END 2024-07-30 15:37 | disposition home or self-care (01) ==
LOC: CATH 08:06
PROVIDERS: ATTENDING PHYSICIAN Internal Medicine Cardiovascular Disease; FAMILY PHYSICIAN Family Medicine; OTHER PHYSICIAN Internal Medicine Cardiovascular Disease
DX: I48.0 Paroxysmal atrial fibrillation (principal); R00.2 Palpitations; Z79.899 Other long term (current) drug therapy; E78.5 Hyperlipidemia, unspecified; I25.2 Old myocardial infarction; I25.10 Atherosclerotic heart disease of native coronary artery without angina pectoris; I50.32 Chronic diastolic (congestive) heart failure; I34.0 Nonrheumatic mitral (valve) insufficiency; R91.1 Solitary pulmonary nodule; E04.1 Nontoxic single thyroid nodule; Z87.891 Personal history of nicotine dependence; Z90.5 Acquired absence of kidney; Z79.01 Long term (current) use of anticoagulants
CPT/HCPCS: C1730; C1894; C1766 ×2; C1759; C1892; 36415; 76937; 80053; 83735; 85025; 85347; 85610; 86850; 86900; 86901; 93005; 93656; 93657; C1760

== ENCOUNTER → 2024-10-04 11:12 | Outpatient (REF) | payer OTHER, SELFPAY | LOC: WDC 11:12 | PROVIDERS: ATTENDING PHYSICIAN Physician Assistant | DX: Z12.31 Encounter for screening mammogram for malignant neoplasm of breast (principal) | CPT/HCPCS: 77063; 77067 ==